=== PATIENT | female | born 1995 | race Caucasian/White ===

== ENCOUNTER 2019-02-16 15:44 | Emergency (ER) | payer MEDICAID ==
[~2019-02-16] VITALS: Ht 152.4 cm; Wt 71.9 kg
[2019-02-16 15:54] VITALS: Ht 152.4 cm; Wt 71.9 kg
[2019-02-16] MEDS ORDERED: ONDANSETRON (ODT) 4 MG TAB ODT STA (17:59)
[2019-02-16] MEDS ORDERED: ACETAMINOPHEN 325 MG TAB PO STA (17:59)
[2019-02-16] MEDS ORDERED: CEPH-443 PO (20:07)
[2019-02-16] MEDS ORDERED: ACET325T33 PO (20:07)
[2019-02-16 20:30] VITALS: BP 106/64; PULSE 74; RESP 16
--- NOTE | 2019-02-17 02:44 | ERD ---
ER Documentation Chief Complaint Chief Complaint VAG BLEEDING, PT 12 WKS HPI Patient is a 23-year-old female who is 12 weeks present . Presented to the ED for vaginal pain and bleeding x2 days. Patient states the bleeding has been dark red clots. Patient is also complaining of urinary symptoms of burning and pain on urination. the patient states she is with twins and this is her first . Patient is G2, . . Patient states this is never happened to her before. Patient states that she does not know the name of her OB but she goes to a place called to [facility]. Patient denies any allergies to medication and states her only medication she is been taking is vitamins. ROS All systems reviewed and are negative except as per history of present illness. Medications Home Meds Active Scripts Acetaminophen* (Tylenol*) 325 Mg Tablet, 1 TAB PO Q6 PRN for PAIN AND OR ELEVATED TEMP, #20 TAB Prov:EWA SHEA PA-C 02/16/19 Cephalexin* (Keflex*) 500 Mg Capsule, 500 MG PO QID for 5 Days, CAP Prov:EWA SHEA PA-C 02/16/19 Allergies Allergies: Coded Allergies: No Known Allergy (Unverified , 02/16/19) PMhx/Soc Medical and Surgical Hx: pt denies Medical Hx, pt denies Surgical Hx Hx Alcohol Use: No Hx Substance Use: No Hx Tobacco Use: No Smoking Status: Never smoker FmHx Family History: No diabetes, No coronary disease, No other Physical Exam Vitals Vital Signs Date Temp Pulse Resp B/P (MAP) Pulse Ox O2 O2 Flow FiO2 Time Delivery Rate 02/16/19 98.3 74 16 106/64 100 Room Air 20:30 (78) 02/16/19 98.7 94 17 107/64 96 15:54 (78) Physical Exam Const: No acute distress Head: Atraumatic Eyes: Normal Conjunctiva ENT: Normal External Ears, Nose and Mouth. Neck: Full range of motion. No meningismus. Resp: Clear to auscultation bilaterally Cardio: Regular rate and rhythm, no murmurs Abd: Soft, non tender, non distended. Normal bowel sounds Skin: No petechiae or rashes Back: No midline or flank tenderness Ext: No cyanosis, or edema Neur: Awake and alert Psych: Normal Mood and Affect Result Diagram: 02/16/191821 Results 24 hrs Laboratory Tests Test 02/16/19 18:22 White Blood Count 12.1 10^3/ul Red Blood Count 5.10 10^6/ul Hemoglobin 11.5 g/dl Hematocrit 36.5 % Mean Corpuscular Volume 71.6 fl Mean Corpuscular Hemoglobin 22.5 pg Mean Corpuscular Hemoglobin Concent 31.5 g/dl Red Cell Distribution Width 14.8 % Platelet Count 290 10^3/UL Mean Platelet Volume 9.0 fl Immature Granulocytes % 0.400 % Neutrophils % 66.8 % Lymphocytes % 24.6 % Monocytes % 6.6 % Eosinophils % 1.4 % Basophils % 0.2 % Nucleated Red Blood Cells % 0.0 /100WBC Immature Granulocytes # 0.050 10^3/ul Neutrophils # 8.1 10^3/ul Lymphocytes # 3.0 10^3/ul Monocytes # 0.8 10^3/ul Eosinophils # 0.2 10^3/ul Basophils # 0.0 10^3/ul Nucleated Red Blood Cells # 0.0 10^3/ul Urine Color YELLOW Urine Clarity SLIGHTLY CLOUDY Urine pH 5.0 Urine Specific [place] 1.025 Urine Ketones 2+ mg/dL Urine Nitrite NEGATIVE mg/dL Urine Bilirubin NEGATIVE mg/dL Urine Urobilinogen NEGATIVE mg/dL Urine Leukocyte Esterase NEGATIVE Logan/ul Urine Microscopic RBC 3 /HPF Urine Microscopic WBC 2 /HPF Urine Squamous Epithelial Cells FEW /HPF Urine Bacteria FEW /HPF Urine Mucus FEW /HPF Urine Hemoglobin 1+ mg/dL Urine Glucose NEGATIVE mg/dL Urine Total Protein NEGATIVE mg/dl Beta HCG, Quantitative 841612.0 mIU/ml Current Medications Medications Dose Sig/Michell Start Time Status Last (Trade) Ordered Route PRN Stop Time Admin Dose Reason Admin 650 mg ONCE STAT 02/16/19 DC 02/16/19 Acetaminophen PO 17:59 18:22 (Tylenol 02/16/19 18:02 Tab) Ondansetron 4 mg ONCE STAT 02/16/19 DC 02/16/19 HCl (Zofran ODT 17:59 18:22 Odt) 02/16/19 18:02 Procedures/MDM Diagnostic imaging: Read by radiologist PROCEDURE: US OB. CLINICAL INDICATION: Vaginal bleeding TECHNIQUE: Transabdominal views of the pelvis are available for review. COMPARISON: No prior studies are available for comparison. FINDINGS: There is a twin intrauterine gestation. Twin A Sophia-rump length measuring 4.3 cm, corresponding to a gestational age of 11 weeks and 0 days. The heart rate is noted at 156 bpm. Twin B Sophia-rump length measuring 4.3 cm, corresponding to a gestational age of 11 weeks and 0 days. The heart rate is noted at 161 bpm. The ovaries are normal in size and echogenicity. Normal Doppler flow is identified in both ovaries. The right ovary measures 4.4 x 2.5 x 2.5 cm. There is a 2.1 cm simple cyst in the right ovary. The left ovary measures 2.6 x 1.2 x 2.0 cm. There is no free fluid. RPTAT: AA IMPRESSION: Twin live intrauterine with an estimated gestational age of 11 weeks and 0 days, based on ultrasound measurements. RONNIE based on ultrasound measurements is 09/07/19. Medications given in ER: Tylenol Zofran Patient tolerated medication well with no adverse reactions. Patient reported improvement in pain. Medical decision making: This is a 23-year-old female 12 weeks gestation who presents with vaginal bleeding and dysuria. Vital signs were reviewed. Patient was afebrile. Patient was hemodynamically stable. Urine test was positive. Quantitative b- HCG was 791727.0. CBC showed no evidence of systemic infection or severe anemia. Given these findings, the patients presentation is most consistent with t hreatened . I have a much lower clinical concern for ectopic , ruptured ectopic , molar , subchorionic hematoma, spontaneous , incomplete , complete , missed , placental abruption, placental previa, vasa previa, uterine rupture, anembyronic . The patient had increased white blood cell count and has dysuria at this time I want to treat the patient for UTI outpatient. I advised the patient that she needs to follow-up in 2 days for repeat labs for beta-hCG and ultrasound. Advised the patient she can come here to the ED. Advised the patient that she needs to contact her OB tomorrow regarding this visit. She can follow-up with her OB if she prefers that. Patient's vitals were stable during the ED visit. Advised the patient symptoms worsen return to ER immediately. Patient had no further questions upon discharge and is in agreement to the treatment plan Prescription for home: Keflex Acetaminophen I have discussed with the patient proper use and common side effects to expert with the medication . I advised the patient/family to speak with the pharmacist dispensing the medication to be advised of any potential drug interactions with other medication or supplements they may be taking. Discharge: At this time, patient is stable for discharge and outpatient management. I have instructed the patient to follow-up with his\her primary care physician in 1 to 2 days. I have discussed with the patient the possibility of needing to see a specialist for further work-up and imaging studies if symptoms persist. I have instructed the patient to promptly return to the ER for any new or worsening sy mptoms including increased pain, fever, nausea, vomiting, weakness or LOC. The patient and\or family expressed understanding of and agreement with this plan. All questions were answered. Home care instructions were provided. Disclaimer: Inadvertent spelling and grammatical errors are likely due to EHR\dictation software use and do not reflect on the overall quality of patient care. Also, please note that the electronic time recorded on the note does not necessarily reflect the actual time of the patient encounter. Departure Diagnosis: Primary Impression: UTI in Trimester: first trimester Qualified Codes: O23.41 - Unspecified infection of urinary tract in , first trimester Additional Impression: Vaginal bleeding in patient at less than 20 weeks gestation Condition: Fair Patient Instructions: Understanding Urinary Tract Infections (UTIs) Referrals: [facility]LY [facility], [facility]1983 CLINICS YOU HAVE RECEIVED A MEDICAL SCREENING EXAM AND THE RESULTS INDICATE THAT YOU DO NOT HAVE A CONDITION THAT REQUIRES URGENT TREATMENT IN THE EMERGENCY DEPARTMENT. FURTHER EVALUATION AND TREATMENT OF YOUR CONDITION CAN WAIT UNTIL YOU ARE SEEN IN YOUR DOCTORS OFFICE WITHIN THE NEXT 1-2 DAYS. IT IS YOUR RESPONSIBILITY TO MAKE AN APPOINTMENT FOR FOLOW-UP CARE. IF YOU HAVE A PRIMARY DOCTOR --you should call your primary doctor and schedule an appointment IF YOU DO NOT HAVE A PRIMARY DOCTOR YOU CAN CALL OUR PHYSICIAN REFERRAL HOTLINE AT IF YOU CAN NOT AFFORD TO SEE A PHYSICIAN YOU CAN CHOSE FROM THE FOLLOWING [facility], [facility] CLINICS [facility] [address] [facility] [address] [facility] [address] [facility] [address] [facility]. [facility] [address] [facility] [address] [facility]. [facility] YOU HAVE RECEIVED A MEDICAL SCREENING EXAM AND THE RESULTS INDICATE THAT YOU DO NOT HAVE A CONDITION THAT REQUIRES URGENT TREATMENT IN THE EMERGENCY DEPARTMENT. FURTHER EVALUATION AND TREATMENT OF YOUR CONDITION CAN WAIT UNTIL YOU ARE SEEN IN YOUR DOCTORS OFFICE WITHIN THE NEXT 1-2 DAYS. IT IS YOUR RESPONSIBILITY TO MAKE AN APPOINTMENT FOR FOLOW- CARE. IF YOU HAVE A PRIMARY DOCTOR --you should call your primary doctor and schedule and appointment IF YOU DO NOT HAVE A PRIMARY DOCTOR YOU CAN CALL OUR PHYSICIAN REFERRAL HOTLINE AT . IF YOU CAN NOT AFFORD TO SEE A PHYSICIAN YOU CAN CHOSE FROM THE FOLLOWING [facility] INSTITUTIONS: [facility] [address] [place] [address] [facility] [address] [place] [address] [facility] [address] [place] [address] [employer] [place] [address] [facility] [address] [place], [place] [phone] OFFICE FAX , [place] [address] [place], [place] [id number] [facility] [address] [place], [place] [phone] [place] [address] [facility], [facility] [address] [facility] [address] [address] [address] [place], [place] [phone] [facility] [address] [address] [place] [address] [address] [facility] [id number] - TOMMIE MONROY [address] [place] [phone] [address] LINDSEY, CAROLINE [address] [facility] [address], [place] [phone] [address] WORRELL, [place] [address] [place] [address] Additional Instructions: Visite a blankenship deacon victor para un EXAMEN.Regrese a estas instalaciones si no se mejora dameon esperbamos o dameon le onels. EWA SHEA PA-C Feb 17, 2019 02:44
== END 2019-02-16 20:31 | disposition home or self-care (01) ==
LOC: FTE 15:44
DX: O23.41 Unspecified infection of urinary tract in pregnancy, first trimester (principal); R10.2 Pelvic and perineal pain; Z3A.12 12 weeks gestation of pregnancy
CPT/HCPCS: 76801; 81001; 84702; 85025; 86900; 86901; Z7610; 36415